=== PATIENT | male | born 1945 | race Caucasian/White ===

== ENCOUNTER → 2018-08-11 09:44 | Outpatient (BNVA) | payer MEDICARE, BC, SELFPAY | PROVIDERS: PCP Family Medicine; Referring Provider Family Medicine; Visit Provider Orthopaedic Surgery | DX: G56.02 Carpal tunnel syndrome, left upper limb (principal) | CPT/HCPCS: 99212; 99214 ==

== ENCOUNTER 2018-08-25 08:47 | Outpatient (CLI) | payer MEDICARE, BC, SELFPAY ==
--- NOTE | 2018-08-25 13:37 | W.PREOPHP ---
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 A brief review of the anatomy was done with the surgical procedure outlined to Jeffy all questions were answered. History of Present Illness Chief Complaint: right hand tingling Narrative: jeffy is a [id number] male who is status post a right E CTR in the late 70s or early 80s with resolution of his symptoms who now reports a 3-month history of episodic numbness affecting his thumb long index and long finger definitely sparing his ring and little finger that has been present for 3 months with night waking causing the patient to shake out his hands to relieve his symptoms. His exam and clinical story was consistent of recurrent right carpal tunnel syndrome thought secondary to scarring as he got long-term relief from the previous E CTR. Pertinent Surgical Information Denies previous medical history of: stroke, TIA, ID, use of sublingual nitroglycerin, GERD, seizures, diabetes, thyroid disease, sleep apnea, liver disease, hepatitis, hematologic disorders Denies previous complications from surgery or anesthesic agents with respect to high fever, prolonged vomiting and difficulty waking up Review of Systems Constitutional Denies fever(s) and Denies headache(s) ENT Denies headache(s), Denies nasal congestion, Denies nasal discharge and Denies sore throat Cardiovascular Denies chest pain, Denies chest pain with activity, Denies palpitations, Denies dyspnea on exertion, Denies orthopnea and Denies paroxysmal nocturnal dyspnea Respiratory Denies cough, Denies excessive phlegm production, Denies pain on inspiration, Denies dyspnea on exertion and Denies wheezing Gastrointestinal Denies abdominal pain, Denies melena, Denies hematochezia, Denies nausea and Denies vomiting Genitourinary Denies hematuria, Denies dysuria and Denies urinary frequency Musculoskeletal Reports as per HPI Neurologic Denies headache(s) Psychiatric Denies anxiety and Denies depression Endocrine Denies palpitations Comments: Denies any unplanned weight changes Allergic/Immunologic Denies wheezing PFSH Medical History Osteoarthritis (Chronic) Kidney stone (Chronic) BPH (benign prostatic hyperplasia) (Chronic) Hypertension (Chronic) COPD (chronic obstructive pulmonary disease) (Chronic) Restless leg syndrome (Chronic) History of low back pain (Chronic) Hx of hearing loss (Chronic) Surgical History History of carpal tunnel release (Acute) History of colonoscopy (Chronic) History of hernia repair (Chronic) Family History Other Asthma Heart disease Social History Smoking/Tobacco Use Status: Former Tobacco Use Tobacco: How many years used: 20 Alcohol Intake: never Drug use: Never Substance use type: does not use Details: Pt states he quit smoking 1987 Communication Needs: Hard of Hearing Do you feel safe at home: Yes Meds Home Medications Medication Instructions Recorded Confirmed Type albuterol sulfate HFA 90 2 puff IH .Q4 PRN gm 08/11/18 08/25/18 History mcg/actuation aerosol inhaler carbidopa 25 mg-levodopa 100 mg 1 tab PO HS tab 08/11/18 08/25/18 History tablet finasteride 5 mg tablet 5 mg PO DAILY 08/11/18 08/25/18 History fluticasone propionate 50 4 spray CARLYN DAILY gm 08/11/18 08/25/18 History mcg/actuation nasal spray,suspension gabapentin 300 mg capsule 300 mg PO DAILY 08/11/18 08/25/18 History lisinopril 20 mg tablet 10 mg PO BID tab 08/11/18 08/25/18 History montelukast 10 mg tablet 10 mg PO QPM 08/11/18 08/25/18 History naproxen 500 mg tablet 500 mg PO BID 08/11/18 08/25/18 History tamsulosin 0.4 mg capsule 0.4 mg PO DAILY 08/11/18 08/25/18 History ibuprofen 800 mg PO TID 08/25/18 08/25/18 History Allergies Allergy/AdvReac Type Severity Reaction Status Date / Time No Known Allergies Allergy Verified 08/25/18 09:07 Exam Const General: cooperative HENMT Throat: posterior oropharynx normal Eyes General: appearance normal, both eyes and all related structures Conjunctivae: conjunctivae normal Sclera: sclerae normal Neck Neck: no JVD Carotids: normal carotid upstroke and no bruits Resp Effort & Inspection: normal respiratory effort and able to speak in complete sentences Auscultation: clear to auscultation bilaterally, no rales, no rhonchi and no wheezes Cardio Rate: regular rate Heart Sounds: S1 normal, S2 normal and no murmurs Bruits: no abdominal aortic bruits Pulses: normal peripheral pulses Other: No pulsatile mass noted with palpation over the abdominal aorta GI Palpation: soft and no hepatosplenomegaly Auscultation: normal bowel sounds General: No CVA tenderness Extrem General: no pedal edema Other: right wrist with + tinel and phalens without median nerve compressive test. no thenar atrophy
== END 2018-08-25 09:07 ==
PROVIDERS: PCP Family Medicine; Visit Provider Orthopaedic Surgery
DX: G56.01 Carpal tunnel syndrome, right upper limb (principal); Z01.818 Encounter for other preprocedural examination; I10 Essential (primary) hypertension; J44.9 Chronic obstructive pulmonary disease, unspecified

== ENCOUNTER 2018-08-31 06:08 | Day surgery (SDC) | payer MEDICARE, BC, SELFPAY ==
[2018-08-31 06:28] VITALS: BP 139/75; PULSE 57; RESP 16; TEMP 36; O2SAT 96
[2018-08-31] MEDS: Lactated Ringers 1,000 ML 80 ML IV (06:53)
[2018-08-31] MEDS: ceFAZolin 2 GM/50 ML BAG IVPB (08:01)
--- NOTE | 2018-08-31 09:10 | PDOC.DSDIS_ITS ---
Discharge Plan Disposition Patient Disposition: HOME Condition: Good Discharge Details Reason For Visit: Open CTR, Flexor synovectomy R wrist Attending Provider: Israel Bhardwaj Primary Care Provider: Se Ruth Home Meds and New Rx's Prescriptions: New hydrocodone-acetaminophen 5-325 mg tablet 1 tab PO Q6H PRN (Reason: pain) Qty: 10 RF: 0 ibuprofen 800 mg tablet 800 mg PO TID Qty: 30 RF: 0 Continued carbidopa-levodopa 25-100 mg tablet 1 tab PO HS RF: 0 finasteride 5 mg tablet 5 mg PO DAILY RF: 0 fluticasone propionate [Allergy Relief (fluticasone)] 50 mcg/actuation spray,suspension 4 spray CARLYN DAILY RF: 0 gabapentin 300 mg capsule 300 mg PO DAILY RF: 0 lisinopril 20 mg tablet 10 mg PO BID RF: 0 montelukast 10 mg tablet 10 mg PO QPM RF: 0 naproxen 500 mg tablet 500 mg PO BID RF: 0 albuterol sulfate [ProAir HFA] 90 mcg/actuation HFA aerosol inhaler 2 puff IH .Q4 PRNRF: 0 tamsulosin 0.4 mg capsule 0.4 mg PO DAILY RF: 0 ibuprofen 800 mg Tablet 800 mg PO TID RF: 0 Discharge Instructions Additional Instructions: Elevate R hand above heart level as much as possible for next 48 hours. Wiggle fingers R hand 10 times/hour when awake to prevent swelling. Your fingers may stay numb for 24 hours due to nerve block I put in to decrease post-op pain. Keep dressings and splint dry and intact until return. Return to 's office in one week. Cover with plastic bag sealed with large rubber band below elbow to shower. Take ibuprofen for mild pain. Take hydrocodone for pain not relieved by ibuprofen. Referrals: Israel Bhardwaj MD [ [facility] STAFF PHYSICIAN] - (f/u in one week.) Equipment/Supplies: Splint Activity:: Activity as Tolerated Remove Dressings/Wound Care:: Do Not Remove Shower/Bathe:: Cover Diet:: As Tolerated Discharge Orders Discharge Orders: Discharge Order (Routine); Ordered 08/31/18 Ordered By: Israel Bhardwaj DS: Diagnosis Discharge Diagnosis (1) Carpal tunnel syndrome on right: Status: Acute
[2018-08-31 09:52] VITALS: BP 126/64; PULSE 53; RESP 16; TEMP 35.4; O2SAT 98
--- NOTE | 2018-08-31 14:14 | ROE_ITS ---
DATE OF PROCEDURE: August 31, 2018 PREOPERATIVE DIAGNOSIS: Carpal tunnel syndrome, right. POSTOPERATIVE DIAGNOSIS: Same. PROCEDURE: Open carpal tunnel release, right and flexor synovectomy right wrist. ANESTHESIA: IV regional. SURGEON: Israel Bhardwaj M.D. INDICATIONS: This is a 73-year-old white male who had an endoscopic carpal tunnel release some thirt een years ago with good results. Over the last year, however, he has developed numbness in the media n nerve distribution associated with some pain. He appears to have some soft tissue thickening aroun d his flexor tendons at the wrist as well. He's a known diabetic. I felt he had developed a recurre nt carpal tunnel syndrome, probably on the basis of scarring around the median nerve. Because of the soft tissue thickening and the fact that this was a recurrent carpal tunnel syndrome, I recommended an open carpal tunnel syndrome be performed with external neurolysis of the median nerve. I also rec ommended that a flexor synovectomy be performed if, in fact, he does appear to have flexor synovitis. The risks and complications of the procedure were explained to the patient in detail preoperativel y. PROCEDURE: The patient was taken to the Operating Room on 08/31/18. He was placed supine on the oper ating table and an IV regional anesthetic was administered to the right upper extremity. Once good anesthesia was obtained, I made an incision beginning just at the distal edge of the volar carpal ligament, curving around the base of the hypothenar eminence and then carrying it across the f lexor creases in a zigzag fashion and extend it along the course of the palmaris longus tendon for a distance of about three inches. The incision was carried down to the fascia. The fascia was incised proximally in the incision. The median nerve was identified and protected while I completed the fas cial incision across the volar wrist creases. I then incised the palmar fascia along the ulnar side of the carpal tunnel, completely releasing the volar carpal ligament. There was moderate synovitis with thick synovium adherent to the flexor tendon and to the median nerve. A synovectomy was perform ed with sharp dissection and use of a rongeur. There was scar tissue around the median nerve causing the median nerve to be narrowed and a little bit discolored at the point of maximum compression. An external neurolysis was performed, restoring the normal shape and contour of the median nerve. The nerve was then copiously irrigated with saline solution. Hemostasis was obtained with electrocautery of any obvious bleeders. The wound margins were infiltrated with 0.5% Marcaine with an epinephrine solution and a median nerve block was performed with 0.5% Marcaine with an epinephrine solution. Onc e again the wound was irrigated with saline solution. Then the skin edges were approximated with sim ple interrupted #4-0 Nylon sutures, some vertical mattress sutures of #4-0 Nylon and some horizontal mattress sutures of #4-0 Nylon suture material. The wound was dressed with Xeroform gauze, sterile gauze 4x4's, an ABD pad, wrapped with a Kerlix bandage and then wrapped with an Son bandage for a lig ht pressure dressing. A commercial cockup wrist splint was applied over the dressings. The patient' s IV regional anesthesia was reversed without complications. He was discharged to the recovery room in good condition. The patient was discharged home from the Day Surgery Unit when fully recovered from his IV regional a nesthesia. He was given instructions to elevate his right hand above heart level as much as possible for the next 48 hours. He is encouraged to wiggle his fingers ten times an hour while awake to prev ent swelling and pain. He should keep his dressings dry and in place and his splint in place until h e follows up in my office in one week. He should cover the dressings and splint with a plastic bag t o shower. He was given a prescription of Hydrocodone with APAP 5/325 one tablet every six hours, as needed for pain that is not relieved by Tylenol or ibuprofen.
== END 2018-08-31 10:15 | disposition home or self-care (01) ==
PROVIDERS: PCP Family Medicine; Visit Provider Orthopaedic Surgery
PROC: (CPT 64721; principal; 2018-08-31 07:30)
DX: G56.01 Carpal tunnel syndrome, right upper limb (principal); M65.9 Synovitis and tenosynovitis, unspecified
CPT/HCPCS: 64721; 26145; J0690; L3908

== ENCOUNTER → 2018-09-08 10:05 | Outpatient (BNVA) | payer MEDICARE, BC, SELFPAY | PROVIDERS: PCP Family Medicine; Referring Provider Family Medicine; Visit Provider Orthopaedic Surgery | DX: J44.9 Chronic obstructive pulmonary disease, unspecified (principal); I10 Essential (primary) hypertension; Z47.89 Encounter for other orthopedic aftercare; G56.01 Carpal tunnel syndrome, right upper limb ==

== ENCOUNTER → 2018-09-15 10:52 | Outpatient (BNVA) | payer MEDICARE, BC, SELFPAY | PROVIDERS: PCP Family Medicine; Referring Provider Family Medicine; Visit Provider Orthopaedic Surgery | DX: Z47.89 Encounter for other orthopedic aftercare (principal); G56.01 Carpal tunnel syndrome, right upper limb ==

== ENCOUNTER 2018-11-10 15:00 | Outpatient (CLI) | payer MEDICARE, BC, SELFPAY ==
--- NOTE | 2018-11-10 10:35 | DI.RAD_ITS ---
SYMPTOM/DIAGNOSIS: WRIST PAIN RIGHT WRIST: 11/10/18 Two views were obtained. Carpal alignment appears within normal limits. There is some narrowing of cartilaginous joint spaces at multiple sites including navicular capitate, navicular lesser multangular and greater multangular and lesser multangular metacarpal joints. CONCLUSION: Degenerative changes of the wrist as described above.
== END 2018-11-10 15:20 ==
PROVIDERS: PCP Family Medicine; Referring Provider Family Medicine; Visit Provider Orthopaedic Surgery
DX: M25.531 Pain in right wrist (principal); M19.031 Primary osteoarthritis, right wrist; Z47.89 Encounter for other orthopedic aftercare; G56.01 Carpal tunnel syndrome, right upper limb; M77.9 Enthesopathy, unspecified
CPT/HCPCS: 73100; L3908

== ENCOUNTER → 2018-12-08 09:21 | Outpatient (BNVA) | payer MEDICARE, BC, SELFPAY | PROVIDERS: PCP Family Medicine; Referring Provider Family Medicine; Visit Provider Orthopaedic Surgery | DX: Z47.89 Encounter for other orthopedic aftercare (principal); G56.01 Carpal tunnel syndrome, right upper limb | CPT/HCPCS: 99213 ==

== ENCOUNTER 2019-02-09 10:41 | Outpatient (CLI) | payer MEDICARE, BC, SELFPAY ==
--- NOTE | 2019-02-09 10:32 | DI.RAD_ITS ---
EXAM: XR HAND RT COMPLETE INDICATION: pain. COMPARISON: XR wrist RT limited from 11/10/2018 TECHNIQUE: 2D digital imaging was performed. FINDINGS: There is deformity of the 5th metacarpal consistent with an old healed fracture. There are degenerati ve changes of the 1st metacarpophalangeal joint with a few subchondral cysts. There are also degenera tive changes of the interphalangeal joints of the fingers. There is no evidence of fracture. Vascul ar calcifications are seen. IMPRESSION: Degenerative changes. No acute abnormality.
== END 2019-02-09 11:01 ==
PROVIDERS: PCP Family Medicine; Referring Provider Family Medicine; Visit Provider Orthopaedic Surgery
DX: M79.641 Pain in right hand (principal); M25.531 Pain in right wrist; M18.11 Unilateral primary osteoarthritis of first carpometacarpal joint, right hand; M19.041 Primary osteoarthritis, right hand; S62.326A Displaced fracture of shaft of fifth metacarpal bone, right hand, initial encounter for closed fracture; X50.9XXA Other and unspecified overexertion or strenuous movements or postures, initial encounter
CPT/HCPCS: 99213; 73130

== ENCOUNTER → 2019-11-16 09:50 | Outpatient (BNVA) | payer MEDICARE, BC, SELFPAY | PROVIDERS: PCP Family Medicine; Referring Provider Family Medicine; Visit Provider Orthopaedic Surgery | DX: M25.531 Pain in right wrist (principal) | CPT/HCPCS: 99213 ==

== ENCOUNTER → 2023-07-09 13:31 | Outpatient (BNVA) | payer MEDICARE, BC, SELFPAY | PROVIDERS: PCP Family Medicine; Referring Provider Family Medicine; Visit Provider Podiatrist | DX: L60.3 Nail dystrophy (principal); B35.1 Tinea unguium; M79.671 Pain in right foot; M79.672 Pain in left foot | CPT/HCPCS: 99202 ==

== ENCOUNTER → 2023-12-30 14:06 | Outpatient (BNVA) | payer MEDICARE, BC, SELFPAY | PROVIDERS: PCP Family Medicine; Referring Provider Family Medicine; Visit Provider Podiatrist | DX: L60.3 Nail dystrophy (principal); B35.1 Tinea unguium; M79.671 Pain in right foot; M79.672 Pain in left foot; I70.203 Unspecified atherosclerosis of native arteries of extremities, bilateral legs; N18.9 Chronic kidney disease, unspecified | CPT/HCPCS: 11721 ==

== ENCOUNTER 2024-02-20 08:00 | Day surgery (SDC) | payer MEDICARE, BC, SELFPAY ==
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
[2024-02-20 08:05] VITALS: BP 150/92; PULSE 76; RESP 20; TEMP 36.4; O2SAT 96
[2024-02-20] MEDS: Tropicam./Phenyleph. (1/2.5%) 5 ML BTL OD ×3 (08:15→08:25)
[2024-02-20 08:46] VITALS: BMI 34.7
[2024-02-20] MEDS: Povidone-Iodine Ophth 30 ML BTL (09:41)
[2024-02-20] MEDS: Tetracaine 0.5% 4 ML BTL OD (09:41)
[2024-02-20] MEDS: Balanced Salt Soln.-PLUS 500 ML BAG OP ×2 (09:47→10:32)
[2024-02-20] MEDS: Duovisc Viscoelastic System EACH 1 EACH ×2 (09:47→10:12)
[2024-02-20] MEDS: Lidocaine 1% Pres-Free 5 ML VIAL (09:48)
[2024-02-20] MEDS: Trypan Blue 0.06% 0.5 ML SYR (10:03)
[2024-02-20] MEDS: Prednisolone 1%, Moxifloxacin 0.5%, Bromfenac 0.09% 5.6ML BTL OD (10:35)
[2024-02-20 10:43] VITALS: BP 161/81; PULSE 67; RESP 18; TEMP 36.1; O2SAT 98
--- NOTE | 2024-02-20 10:44 | W.PM.DSUDISC ---
Date of service: 02/20/24 Time of Service: 10:44 Discharge Plan Disposition Patient Disposition: Home Discharge Details Attending Provider: Bret Maza Primary Care Provider: Bill Torres Home Meds and New Rx's Prescriptions: No Action carbidopa-levodopa 25-100 mg tablet 1 tab PO HS acetaminophen 500 mg tablet 1,000 mg PO Q6H PRN albuterol sulfate 90 mcg/actuation HFA aerosol inhaler 2 puff inhalation Q6H PRN diclofenac sodium 3 % gel 1 applic topical BID fluticasone propionate [Flonase Allergy Relief] 50 mcg/actuation spray,suspension 1 spray intranasal DAILY Rx Instructions: administer into each nostril ketoconazole 2 % cream 1 applic topical DAILY Qty: 120 6RF Rx Instructions: Apply to toenails once daily melatonin 3 mg capsule 3 mg PO HS PRN ibuprofen 800 mg tablet 800 mg PO TID Qty: 90 0RF Rx Instructions: take 3 times a day for 3 weeks amlodipine 5 mg tablet 5 mg PO DAILY lisinopril 20 mg tablet 20 mg PO DAILY docusate sodium 100 mg capsule 100 mg PO DAILY PRN Discharge Instructions Stand Alone Forms: [facility]SU Post-Op CataractVasu (DSU) Discharge Orders Discharge Orders: Discharge Order (Routine); Ordered 02/20/24 Ordered By: Bret Maza DS: Diagnosis Discharge Diagnosis (1) Cortical age-related cataract, right eye: Status: Resolved (2) Nuclear age-related cataract, right eye: Status: Resolved
--- NOTE | 2024-02-20 10:45 | W.PM.OP ---
Date of service: 02/20/24 Time of Service: 10:45 Operative Note Operative Note DATE OF PROCEDURE: 02/20/24 PRE-OP DIAGNOSIS: Nuclear/cortical cataract, right eye POST-OP DIAGNOSIS: same PROCEDURE: Cataract extraction using phacoemulsification with intraocular lens implant, right eye SURGEON: Bret Maza ANESTHESIA TYPE: Local By Surgeon and MAC Refer to Anesthesia Record ESTIMATED BLOOD LOSS: 0 PATHOLOGY: none sent COMPLICATIONS: None Patient was transported to: same day Patient's condition: stable Implants: Kaden Clareon [id number] Indications: Progressive decreased vision due to cataract, right eye Procedure Description: CATARACT SURGERY OPERATIVE REPORT PREOPERATIVE DIAGNOSIS: Nuclear/cortical cataract, right eye POSTOPERATIVE DIAGNOSIS: Same OPERATION: Cataract extraction using phacoemulsification with posterior chamber intraocular lens implant, right eye. IOL: IOL Before And After [employer] Daycare Worker/Model: Kaden Clareon [id number] IOL Power: + 26.0 diopters IOL Serial Number: [id number] Optic Diameter: 6.0mm Haptic/Overall Diameter: 13.0mm PHACO INFO: Kaden SnapMy[employer]urion Vision System with OZil and Active Fluidics Cumulative Dispersed Energy (CDE): 26.37 seconds SURGEON: Bret Maza MD, SHELLIE ANESTHESIA: Monitored Anesthesia Care (MAC), with local sub-tenon's anesthetic infiltration COMPLICATIONS: None SPECIMENS: None INDICATIONS FOR PROCEDURE: The patient is a 78-year-old male with history of diminished visual acuity in his right eye secondary to the development of significant nuclear/cortical cataract. He is significantly symptomatic that he desires cataract surgery and attempt to improve and maximize his vision. The option of cataract surgery was offered to the patient and he wished to proceed. See office notes for detailed information. PROCEDURE: The correct surgical eye was identified and marked as the right eye and the pupil was dilated in the preoperative area using mydriatics and cycloplegics. The dilated pupil size was 6.0 mm. The patient elected to proceed without oral sedation. The patient was brought to the operating room where cardiopulmonary monitoring was instituted and surgical time-out was performed, confirming the correct operative eye and IOL power. Topical anesthesia was administered and ophthalmic povidone-iodine 5% was instilled into the conjunctival fornices. The skylar-ocular area was prepped with Betadine 10% solution and draped in the usual sterile fashion for intraocular surgery, including an aperture drape. A Tegaderm transparent film dressing was cut in half and used to cover the lashes and lid margins. Care was taken to sequester the lashes and lid margins under the Tegaderm dressing. A lid speculum was placed between the lids of the operative eye and the Kaden LuxOR Revalia operating microscope was maneuvered into position. Rodney scissors were then used to make a conjunctival buttonhole approximately 6mm posterior to the limbus in the inferonasal quadrant. Blunt dissection was carried out to expose bare sclera, and a blunt-tipped sub-tenon?s anesthesia cannula was introduced and passed posteriorly along the globe where non-preserved plain lidocaine was injected into posterior sub-Tenon?s space. A sideport knife was used to make a paracentesis port. Intraocular phenylephrine/lidocaine was injected into the anterior chamber. The anterior chamber was then filled with viscoelastic. A keratome knife was used to construct a two--plane clear corneal tunnel extending 2.0mm into clear cornea. A flap was raised on the anterior capsule at the 8 o'clock position, and then forceps were used to propagate the continuous capsulorhexis in a clockwise fashion. However, the patient has multiple sudden eye movements which caused the capsulorrhexis to extend peripherally in the subincisional area. The capsule was noted to be extremely thin and poorly visible. A cystotome was used in attempt to make another flap, but the view was compromised. The irrigation/aspiration handpiece was then used to remove viscoelastic from the anterior chamber, and VisionBlue was then gently painted over the anterior capsule, after which the anterior chamber was refilled with Viscoat. The anterior capsule was noted to be split from the central capsule extending to the 9 o'clock position. A can market news reporter Slot he was then initiated at the 3 o'clock position, in a counterclockwise fashion for approximately 3 clock hours, and capsulorrhexis forceps were then used to gently tear a continuous capsulorhexis counterclockwise to the subincisional area. The cystotome was then used to initiate a candy bar capsulotomy in a clockwise fashion starting at the 9 o'clock position, and capsulorrhexis forceps were then used to complete a curvilinear capsulorhexis extending to the subincisional area. Balanced salt solution was then used to perform nuclear hydrodelineation,, but not [address] dissection. The lens nucleus was then disassembled and removed within the capsular bag and iris plane using phacoemulsification. A deep central groove was sculpted into the nucleus, and the anterior chamber refilled with Viscoat. Nucleus splitters were then used to gently cracked the nucleus into 2 2 halves. Additional nuclear [address] delineation and gentle [address] dissection were then carried out. Each nuclear half was then carefully teased out of the capsular bag to the iris plane where it was gently some chopped into multiple fragments and emulsified. The second Fadi nucleus was dealt with in the same fashion. Residual cortical material was removed using the I/A handpiece, taking extreme care in the areas of cannot open her capsulotomy.. The posterior capsule was carefully polished to remove as much residual lens epithelial cells as safely possible. The capsular bag was then inflated and the anterior chamber deepened with cohesive viscoelastic. The lens implant described above was inserted into the capsular bag using the Kaden Autonome Injector. A Kuglen hook was used to dial the IOL into position. Residual viscoelastic was then removed first from posterior to the IOL, then from the anterior chamber using the I/A handpiece. The lens implant was noted to center nicely within the capsular bag. The incisions were stromally hydrated, and the anterior chamber was reformed using BSS. Then 0.5cc of moxifloxacin 1.0mg/ml were injected into the capsular bag and anterior chamber. The incisions were checked with a Weck spear and found to be secure. Several drops of ophthalmic povidone-iodine 5% were then applied to the eye followed by two drops of combination steroid/NSAID/antibiotic solution. The drapes were removed and a clear plastic protective eye shield was placed over the eye. The patient was then returned to Same Day Surgery in stable condition.
--- NOTE | 2024-02-20 11:02 | W.ANESPOSTOP ---
Postoperative Evaluation Date, Time and Location Date Performed: 02/20/24 Time Performed: 10:56 Patient Location: Day Surgery Unit Vital Signs Most Recent Imported Vital Signs: Most Recent Vital Signs Temp Pulse Resp BP Pulse Ox 36.1 C L 67 18 161/81 H 98 02/20/24 10:43 02/20/24 10:43 02/20/24 10:43 02/20/24 10:43 02/20/24 10:43 Pain Score Most Recent Pain Score: Most Recent Pain Score Pain Level 0 02/20/24 10:43 Assessment Mental Status: Awake (Alert & Oriented to Patient Baseline) Airway and Respiratory Function: Patent airway with normal (patient baseline) respiratory exam Cardiovascular Function: Hemodynamically Stable Hydration Status: Adequately Hydrated Nausea & Vomiting: No Nausea or Vomiting Pain: Pt. Denies Any Pain Peripheral Nerve Block: Patient did not receive a nerve block
== END 2024-02-20 11:05 | disposition home or self-care (01) ==
LOC: SUR 08:01
PROVIDERS: PCP Family Medicine; Visit Provider Ophthalmology
PROC: (CPT 66984; principal; 2024-02-20 10:30)
DX: H25.011 Cortical age-related cataract, right eye (principal); H25.11 Age-related nuclear cataract, right eye; I10 Essential (primary) hypertension; J44.9 Chronic obstructive pulmonary disease, unspecified
CPT/HCPCS: 66984; 00123; V2632; J2003

== ENCOUNTER 2024-02-27 08:00 | Day surgery (SDC) | payer MEDICARE, BC, SELFPAY ==
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
[2024-02-27 08:30] VITALS: BP 155/81; PULSE 70; RESP 18; TEMP 36.6; O2SAT 96
[2024-02-27] MEDS: Tropicam./Phenyleph. (1/2.5%) 5 ML BTL OS ×3 (08:37→08:47)
[2024-02-27 09:08] VITALS: BMI 34.7
[2024-02-27] MEDS: Tetracaine 0.5% 4 ML BTL OS (10:21)
[2024-02-27] MEDS: Duovisc Viscoelastic System EACH 1 EACH (10:33)
[2024-02-27] MEDS: Lidocaine 1% Pres-Free 5 ML VIAL (10:34)
[2024-02-27] MEDS: Trypan Blue 0.06% 0.5 ML SYR (10:36)
[2024-02-27] MEDS: Povidone-Iodine Ophth 30 ML BTL (10:36)
[2024-02-27] MEDS: Prednisolone 1%, Moxifloxacin 0.5%, Bromfenac 0.09% 5.6ML BTL OS (10:37)
[2024-02-27] MEDS: Balanced Salt Soln.-PLUS 500 ML BAG OP (10:37)
[2024-02-27 11:05] VITALS: BP 110/78; PULSE 55; RESP 18; TEMP 36.6; O2SAT 96
--- NOTE | 2024-02-27 11:11 | ROE_ITS ---
Date of service: 02/27/24 Time of Service: 11:11 Operative Note Operative Note DATE OF PROCEDURE: 02/27/24 PRE-OP DIAGNOSIS: Nuclear/cortical cataract, left eye POST-OP DIAGNOSIS: same PROCEDURE: Cataract extraction using phacoemulsification with intraocular lens implant, left eye SURGEON: Bret Maza ANESTHESIA TYPE: Local By Surgeon and MAC Refer to Anesthesia Record PATHOLOGY: none sent COMPLICATIONS: None Patient was transported to: same day Patient's condition: stable Implants: Kaden Clareon [id number] Indications: Progressive decreased vision due to cataract, left eye Procedure Description: CATARACT SURGERY OPERATIVE REPORT PREOPERATIVE DIAGNOSIS: Nuclear/cortical cataract, left eye POSTOPERATIVE DIAGNOSIS: Same OPERATION: Cataract extraction using phacoemulsification with posterior chamber intraocular lens implant, left eye. IOL: IOL General [employer] Production/Model: Kaden Clareon [id number] IOL Power: + 26.0 diopters IOL Serial Number: [id number] Optic Diameter: 6.0mm Haptic/Overall Diameter: 13.0mm PHACO INFO: Kaden [employer] Vision System with OZil and Active Fluidics Cumulative Dispersed Energy (CDE): 10.43 seconds SURGEON: Bret Maza MD, SHELLIE ANESTHESIA: Monitored Anesthesia Care (MAC), with local sub-tenon's anesthetic infiltration COMPLICATIONS: None SPECIMENS: None INDICATIONS FOR PROCEDURE: The patient is a 78-year-old male with history of diminished visual acuity in his left eye secondary to the development of nuclear/cortical cataract. He has already undergone cataract surgery in the right eye and is doing well postoperatively. He now presents for cataract surgery in the left eye. See office notes for detailed information. PROCEDURE: The correct surgical eye was identified and marked as the left eye and the pupil was dilated in the preoperative area using mydriatics and cycloplegics. The dilated pupil size was 6.0 mm. The patient elected to proceed without oral sedation. The patient was brought to the operating room where cardiopulmonary monitoring was instituted and surgical time-out was performed, confirming the correct operative eye and IOL power. Topical anesthesia was administered and ophthalmic povidone-iodine 5% was instilled into the conjunctival fornices. The skylar-ocular area was prepped with Betadine 10% solution and draped in the usual sterile fashion for intraocular surgery, including an aperture drape. A Tegaderm transparent film dressing was cut in half and used to cover the lashes and lid margins. Care was taken to sequester the lashes and lid margins under the Tegaderm dressing. A lid speculum was placed between the lids of the operative eye and the Kaden LuxOR Revalia operating microscope was maneuvered into position. The patient was noted to have significant blepharospasm and continuous mild eye movements. Rodney scissors were then used to make a conjunctival buttonhole approximately 6mm posterior to the limbus in the inferonasal quadrant. Blunt dissection was carried out to expose bare sclera, and a blunt-tipped sub-tenon?s anesthesia cannula was introduced and passed posteriorly along the globe where non- preserved plain lidocaine was injected into posterior sub-Tenon?s space. A sideport knife was used to make a paracentesis port. VisionBlue was injected into the anterior chamber allowed to sit for 30 seconds. Intraocular phenylephrine/lidocaine was injected into the anterior chamber. The anterior chamber was then filled with viscoelastic. A keratome knife was used construct a two-plane clear corneal tunnel extending 2.0mm into clear cornea. A flap was raised on the anterior capsule and capsulorhexis forceps were used to complete a continuous curvilinear capsulorhexis of 5.0 mm. Balanced salt solution was then used to perform cortical cleaving hydrodissection and nuclear hydrodelineation until the lens could be freely rotated within the capsular bag. The lens nucleus was then disassembled and removed within the capsular bag and iris plane using phacoemulsification. Residual cortical material was removed using the irrigation/aspiration handpiece. The posterior capsule was carefully polished to remove as much residual lens epithelial cells as safely possible. The capsular bag was then inflated and the anterior chamber deepened with viscoelastic. The lens implant described above was inserted into the capsular bag using the Kaden Autonome Injector. A Kuglen hook was used to dial the IOL into position. Residual viscoelastic was then removed first from posterior to the IOL, then from the anterior chamber using the I/A handpiece. The lens implant was noted to center nicely within the capsular bag. The incisions were stromally hydrated, and the anterior chamber was reformed using BSS. Then 0.5cc of moxifloxacin 1.0mg/ml were injected into the capsular bag and anterior chamber. The incisions were checked with a Weck spear and found to be secure. Several drops of ophthalmic povidone-iodine 5% were then applied to the eye followed by two drops of combination steroid/NSAID/antibiotic solution. The drapes were removed and a clear plastic protective eye shield was placed over the eye. The patient was then returned to Same Day Surgery in stable condition.
--- NOTE | 2024-02-27 11:11 | W.PM.DSUDISC ---
Date of service: 02/27/24 Time of Service: 11:11 Discharge Plan Disposition Patient Disposition: Home Discharge Details Attending Provider: Bret Maza Primary Care Provider: Bill Torres Home Meds and New Rx's Prescriptions: No Action carbidopa-levodopa 25-100 mg tablet 1 tab PO HS acetaminophen 500 mg tablet 1,000 mg PO Q6H PRN albuterol sulfate 90 mcg/actuation HFA aerosol inhaler 2 puff inhalation Q6H PRN diclofenac sodium 3 % gel 1 applic topical BID fluticasone propionate [Flonase Allergy Relief] 50 mcg/actuation spray,suspension 1 spray intranasal DAILY Rx Instructions: administer into each nostril ketoconazole 2 % cream 1 applic topical DAILY Qty: 120 6RF Rx Instructions: Apply to toenails once daily melatonin 3 mg capsule 3 mg PO HS PRN ibuprofen 800 mg tablet 800 mg PO TID Qty: 90 0RF Rx Instructions: take 3 times a day for 3 weeks amlodipine 5 mg tablet 5 mg PO DAILY lisinopril 20 mg tablet 20 mg PO DAILY docusate sodium 100 mg capsule 100 mg PO DAILY PRN Discharge Instructions Stand Alone Forms: DSU Post-Op CataractVasu (DSU) Discharge Orders Discharge Orders: Discharge Order (Routine); Ordered 02/27/24 Ordered By: Bret Maza DS: Diagnosis Discharge Diagnosis (1) Cortical age-related cataract, left eye: Status: Resolved (2) Nuclear age-related cataract, left eye: Status: Resolved
--- NOTE | 2024-02-27 11:33 | W.ANESPOSTOP ---
Postoperative Evaluation Date, Time and Location Date Performed: 02/27/24 Time Performed: 11:07 Patient Location: Day Surgery Unit Vital Signs Most Recent Imported Vital Signs: Most Recent Vital Signs Temp Pulse Resp BP Pulse Ox 36.6 C 55 L 18 110/78 96 02/27/24 11:05 02/27/24 11:05 02/27/24 11:05 02/27/24 11:05 02/27/24 11:05 Assessment Mental Status: Awake (Alert & Oriented to Patient Baseline) Airway and Respiratory Function: Patent airway with normal (patient baseline) respiratory exam Cardiovascular Function: Hemodynamically Stable Hydration Status: Adequately Hydrated Nausea & Vomiting: No Nausea or Vomiting Pain: Pt. Denies Any Pain Peripheral Nerve Block: Other (Local by Dr. Maza)
== END 2024-02-27 11:26 | disposition home or self-care (01) ==
LOC: SUR 08:01
PROVIDERS: PCP Family Medicine; Visit Provider Ophthalmology
PROC: (CPT 66984; principal; 2024-02-27 10:30)
DX: H25.012 Cortical age-related cataract, left eye (principal); H25.12 Age-related nuclear cataract, left eye; I10 Essential (primary) hypertension; J44.9 Chronic obstructive pulmonary disease, unspecified; Z98.41 Cataract extraction status, right eye
CPT/HCPCS: 66984; 00123; V2632; J2003

== ENCOUNTER → 2024-05-12 13:04 | Outpatient (BNVA) | payer MEDICARE, BC, SELFPAY | PROVIDERS: PCP Family Medicine; Referring Provider Family Medicine; Visit Provider Podiatrist | DX: L60.3 Nail dystrophy (principal); B35.1 Tinea unguium; N18.9 Chronic kidney disease, unspecified; I73.9 Peripheral vascular disease, unspecified; M79.675 Pain in left toe(s); R20.2 Paresthesia of skin; R23.8 Other skin changes; R09.89 Other specified symptoms and signs involving the circulatory and respiratory systems; L65.9 Nonscarring hair loss, unspecified; I83.93 Asymptomatic varicose veins of bilateral lower extremities; L60.2 Onychogryphosis | CPT/HCPCS: 11721 ==

== ENCOUNTER 2024-08-17 12:06 | Outpatient (CLI) | payer MEDICARE, BC, SELFPAY ==
--- NOTE | 2024-08-17 06:00 | DI.RAD_ITS ---
Exam(s) XR PAIN CLINIC SACRIOILIAC 2V EXAM: XR PAIN CLINIC SACRIOILIAC 2V CLINICAL HISTORY: Dx: Sacroiliac joint dysfunction. TECHNIQUE: Fluoroscopy was provided for the referring physician for guidance with performing pain cl inic injection procedure. COMPARISON: No exams were available for comparison FINDINGS: Please see procedure note for details. Fluoro time: 25.5 seconds RADIATION DOSE DELIVERED: Ka,r=16.34 mGy
[2024-08-17 12:18] VITALS: BP 146/88; PULSE 67; RESP 18; TEMP 36.5; O2SAT 94
--- NOTE | 2024-08-17 12:33 | PDOC.PAIN ---
Date of service: 08/17/24 Time of Service: 12:59 Pain Managment Procedure Note Procedure Note Procedure Note: ?Sacroiliac Joint Steroid Injection ? Location: ? Right SI Joint? Pre-procedure Diagnosis: Sacroiliitis, not elsewhere classified - M46.1 ? Post-procedure Diagnosis:? The same as above ? Sedation:? NONE ? Medication: Depo-Medrol 40 mg, bupivacaine 0.5% 1 mL, Omnipaque 0.25 mL per joint ? Estimated blood loss:? less than 2 cc ? Surgeon:? Jan Bello MD ? COMMENT: THIS WILL BE BOTH DIAGNOSTIC AND THERAPEUTIC ? Procedure Detail:? The procedure and potential risks were explained to the patient and informed written consent was obtained. The patient was escorted to the procedure room and placed in the prone position. Pillows were utilized for proper positioning and comfort. Time out was performed in the procedure room with nursing staff confirming the patient's identity, procedure to be performed, allergies, and any blood thinning or anti-platelet medications. The patient's lumbosacral area was prepped with ChloraPrep and draped in a sterile fashion. Sterile technique was maintained throughout the procedure.? Sterile gloves were used, a face mask was worn, and new single dose vials of all medications were used with the top being swabbed with alcohol and given time to dry prior to withdrawal of medication. Lidocaine 1% was used to anesthetize the skin. With fluoroscopic guidance, a 22-gauge 3.5 spinal needle was advanced into the posteroinferior aspect of the Right SI joint . Confirmation of intra-articular position of the needle tip was obtained with injection of 0.25cc of Omnipaque 240 contrast which showed appropriate spread within the joint.? Following negative aspiration, 40mg of methylprednisolone mixed with 1 mL of bupivacaine 0.5% was injected.? The needle was gently removed. ?The patient tolerated the procedure well and was transported to the recovery area for observation and discharge instructions.? Permanent images saved and recorded. Plan:? Follow up prn. PAIN PRE PROCEDURE 10 POST PROCEDURE 010 COMMENT: [100] % BETTER AFTER INJECTION Coding Conscious Sedation used for procedure: No CPT Codes: SI Joint Inj; incl Fluoro - 28170 ([id number] ~G) Additional Codes: Date of Service (08433) Date of service: 08/17/24
[2024-08-17 12:42] VITALS: PULSE 75; O2SAT 95
[2024-08-17 12:50] VITALS: PULSE 73; O2SAT 94
[2024-08-17] MEDS: methylPREDNISolone ACETATE 80 MG/ML VIAL IJ (12:59)
[2024-08-17] MEDS: Nerve Block Tray 1 EACH MC (12:59)
[2024-08-17] MEDS: Omnipaque 240 MG/ML 50 ML BTL IJ (12:59)
[2024-08-17] MEDS: Bupivacaine 0.5% Pres-Free 10 ML VIAL IJ (13:00)
== END 2024-08-17 12:07 | disposition home or self-care (01) ==
LOC: PC 12:09
PROVIDERS: PCP Specialist/Technologist Athletic Trainer; Visit Provider Anesthesiology Pain Medicine
DX: M46.1 Sacroiliitis, not elsewhere classified (principal); M54.50 Low back pain, unspecified
CPT/HCPCS: 27096; 72200; J0665; J1010; Q9967

== ENCOUNTER → 2024-09-08 13:16 | Outpatient (BNVA) | payer MEDICARE, BC, SELFPAY | PROVIDERS: PCP Specialist/Technologist Athletic Trainer; Referring Provider Family Medicine; Visit Provider Podiatrist | DX: L60.3 Nail dystrophy (principal); B35.1 Tinea unguium; N18.9 Chronic kidney disease, unspecified; I73.89 Other specified peripheral vascular diseases; M79.675 Pain in left toe(s); R09.89 Other specified symptoms and signs involving the circulatory and respiratory systems; I83.93 Asymptomatic varicose veins of bilateral lower extremities; L65.9 Nonscarring hair loss, unspecified; R23.8 Other skin changes; L60.2 Onychogryphosis; L60.8 Other nail disorders | CPT/HCPCS: 11721 ==

== ENCOUNTER 2024-09-14 12:10 | Outpatient (CLI) | payer MEDICARE, BC, SELFPAY ==
[2024-09-14 12:19] VITALS: BP 123/100; PULSE 64; RESP 18; TEMP 36.5; O2SAT 96
--- NOTE | 2024-09-14 12:26 | PDOC.PAIN_ITS ---
Date of service: 09/14/24 Time of Service: 13:04 Pain Managment Procedure Note Procedure Note Procedure Note: Lumbar Transforaminal Epidural Steroid Injection ? Location: RIGHT L3-4 and L4-5 ? Pre-procedure Diagnosis: M54.17-Radiculopathy, lumbosacral region M54.16 Radiculopathy, lumbar region ? Post-procedure Diagnosis:? The same as above ? Sedation:? none ? Estimated blood loss:? less than 2 cc ? Surgeon:? 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 Previous little bit SI joint injection helped minimally ? Procedure Detail:?? The procedure and potential risks were explained to the patient and informed written consent was obtained. The patient was escorted to the procedure room and placed in the prone position. Pillows were utilized for proper positioning and comfort. Time out was performed in the procedure room with nursing staff confirming the patient's identity, procedure to be performed, allergies, and any blood thinning or anti-platelet medications. The patient's lower back was prepped with ChloraPrep and draped in a sterile fashion. Sterile gloves were used, a face mask was worn, and new single dose vials of all medications were used with the top being swabbed with alcohol and given time to dry prior to withdrawal of medication. A right sided oblique fluoroscopic view was obtained, with visualization of L4-5. Lidocaine 1% was used to anesthetize the skin. The tip of a 22-gauge, Quincke needle was advanced toward the 6 o'clock position of the superior pedicle at the target level.? It was advanced just under the pedicle to the neural foramen L4-5. Correct needle placement was confirmed through review of the fluoroscopy. Next, following negative aspiration, 1cc's of Omnipaque 240 contrast was injected under live fluoroscopy which showed good flow throughout the epidural space and no evidence of vascular flow or flow into adjacent compartments. Next, following negative aspiration, 40mg Depo-Medrol and 0.5ml of 0.5% bupivacaine was injected. The needle was gently removed.? The procedure was also performed in the same fashion at Right L3-4.? The patient tolerated the procedure well and was discharged home with instruct ions.? Permanent images saved and recorded. Plan:? Follow up prn PAIN: PRE PROCEDURE 10/12 POST PROCEDURE COMMENT: repeat prn if good long lasting relief otherwise f/u in office Coding Conscious Sedation used for procedure: No CPT Codes: Transforaminal Lumbar/Sacral (includes fluoro) - 53678 ([id number] ~G) Transforaminal Lumbar/Sacral (includes Fluoro) each add'l - 14280 ([id number] ~G) Additional Codes: Date of Service (10414) Date of service: 09/14/24
[2024-09-14 12:42] VITALS: PULSE 87; O2SAT 93
[2024-09-14 12:50] VITALS: PULSE 79; O2SAT 94
--- NOTE | 2024-09-14 13:00 | DI.RAD_ITS ---
Exam(s) XR PAIN CLINIC LUMBAR SP 2V EXAM: XR PAIN CLINIC LUMBAR SP 2V CLINICAL HISTORY: Dx: Lumbar Radiculopathy TECHNIQUE: 2D and realtime digital imaging was performed. CONTRAST MATERIAL: Refer to procedure report. COMPARISON: No exams were available for comparison FINDINGS: Fluoroscopy was provided for Dr. Bello during the performance of a transforaminal epidural steroid injection. Please refer to the procedure report for complete details. Ka,r=29.0 mGy IMPRESSION: RADIATION DOSE DELIVERED: 0.0 0.0 0
[2024-09-14] MEDS: methylPREDNISolone ACETATE 40 MG/ML VIAL IJ (13:03)
[2024-09-14] MEDS: Nerve Block Tray 1 EACH MC (13:03)
[2024-09-14] MEDS: Bupivacaine 0.5% Pres-Free 10 ML VIAL IJ (13:03)
== END 2024-09-14 12:11 | disposition home or self-care (01) ==
LOC: PC 12:10
PROVIDERS: PCP Specialist/Technologist Athletic Trainer; Visit Provider Anesthesiology Pain Medicine
DX: M54.17 Radiculopathy, lumbosacral region (principal); M54.16 Radiculopathy, lumbar region; M54.50 Low back pain, unspecified
CPT/HCPCS: 64483; 64484; 72100; J0665; J1010

== ENCOUNTER → 2025-01-11 14:15 | Outpatient (BNVA) | payer MEDICARE, BC, SELFPAY | PROVIDERS: PCP Specialist/Technologist Athletic Trainer; Referring Provider Specialist/Technologist Athletic Trainer; Visit Provider Podiatrist | DX: L60.3 Nail dystrophy (principal); B35.1 Tinea unguium; N18.9 Chronic kidney disease, unspecified; I73.89 Other specified peripheral vascular diseases; M79.675 Pain in left toe(s); R09.89 Other specified symptoms and signs involving the circulatory and respiratory systems; R20.8 Other disturbances of skin sensation; R23.8 Other skin changes; L60.2 Onychogryphosis; L60.8 Other nail disorders | CPT/HCPCS: 11721; 93922 ==